=== PATIENT | male | born 1950 | race Two or more races ===

== ENCOUNTER 2024-02-10 18:30 | Emergency (ER) | payer OTHER ==
[~2024-02-10] VITALS: Ht 172.7 cm; Wt 65.9 kg
[2024-02-10 18:34] VITALS: TEMP 98.1
[2024-02-10] MEDS ORDERED: LIDOCAINE 1% 10 ML VIAL ONE (21:44)
[2024-02-10] MEDS ORDERED: BACITRACIN 0.9 GM PACKET OINTMENT TP ONE (21:44)
[2024-02-10] MEDS ORDERED: PERTUSS(ACELL),DIPH,TET/PF 0.5 ML SYRINGE [ADULT] IM. ONE (21:44)
[2024-02-10] MEDS: PERTUSS(ACELL),DIPH,TET/PF 0.5 ML SYRINGE [ADULT] IM. ONE (22:00)
[2024-02-10] MEDS: BACITRACIN 0.9 GM PACKET OINTMENT TP ONE (22:00)
[2024-02-10] MEDS: LIDOCAINE 1% 10 ML VIAL SQ ONE (22:01)
[2024-02-10] MEDS ORDERED: ACET-2080 PO (22:22)
[2024-02-10] MEDS ORDERED: IBUP-1554 PO (22:22)
[2024-02-10] MEDS ORDERED: CEPH-558 PO (22:22)
[2024-02-10 22:29] VITALS: BP 170/102; PULSE 65; RESP 18
[2024-02-10] MEDS: CEPHALEXIN MONOHYDRATE 500 MG CAPSULE PO ONE (22:37)
[2024-02-10] MEDS: DOXYCYCLINE HYCLATE 100 MG TABLET PO ONE (22:37)
[2024-02-10] MEDS: ACETAMINOPHEN/CODEINE 300-30 MG TABLET PO ONE (22:37)
== END 2024-02-10 23:10 | disposition home or self-care (01) ==
LOC: EMS 18:33
DX: S62.632B Displaced fracture of distal phalanx of right middle finger, initial encounter for open fracture (principal); I10 Essential (primary) hypertension; X58.XXXA Exposure to other specified factors, initial encounter; Y93.89 Activity, other specified; Y92.89 Other specified places as the place of occurrence of the external cause; Y99.8 Other external cause status
CPT/HCPCS: 99284; 73140; 90715; 90471; 12001; J3490

== ENCOUNTER 2024-02-13 10:30 | Emergency (ER) | payer OTHER ==
[~2024-02-13] VITALS: Ht 180.3 cm; Wt 75.0 kg
[~2024-02-13 10:30] MED LIST: ACET-2080 PO; CEPH-558 PO; IBUP-1554 PO
[2024-02-13 10:31] VITALS: TEMP 98.1
[2024-02-13] MEDS ORDERED: BACITRACIN 0.9 GM PACKET OINTMENT TP ONE (12:00)
[2024-02-13 12:16] VITALS: BP 135/84; PULSE 68; RESP 16
== END 2024-02-13 12:16 | disposition home or self-care (01) ==
LOC: EMS 10:30
DX: S62.632D Displaced fracture of distal phalanx of right middle finger, subsequent encounter for fracture with routine healing (principal); I10 Essential (primary) hypertension; X58.XXXD Exposure to other specified factors, subsequent encounter
CPT/HCPCS: 99281; Z7502; Z7610